=== PATIENT | male | born 1995 | race Caucasian/White ===

== ENCOUNTER 2018-03-02 11:04 | Emergency (ER) | payer SELFPAY ==
[2018-03-02 11:17] VITALS: BP 158/82
--- NOTE | 2018-03-02 13:31 | ER Document Report ---
HPI - HPI Patient complains to provider of: runny nose, cough Onset: Other - few days Onset/Duration: Gradual Pain Level: 1 Context: 22 yo male with congestion, cough, stufy nose, thinks he has the flu. No fever, chest pain or sob. Associated Symptoms: None Exacerbated by: Denies Relieved by: Denies - ROS ROS below otherwise negative: Yes Systems Reviewed and Negative: Yes All other systems reviewed and negative - RESPIRATORY Respiratory: REPORTS: Trouble Breathing, Coughing Past Medical History - General Information source: Patient - Social History Smoking Status: Never Smoker Lives with: Family Family History: Reviewed & Not Pertinent Patient has suicidal ideation: No Patient has homicidal ideation: No - Medical History Medical History: Negative Renal/ Medical History: Denies: Hx Peritoneal Dialysis Surgical Hx: Negative Vertical Provider Document - CONSTITUTIONAL Agree With Documented VS: Yes Exam Limitations: No Limitations General Appearance: No Apparent Distress - INFECTION CONTROL TRAVEL OUTSIDE OF THE [place] IN LAST 30 DAYS: No - HEENT HEENT: Pharyngeal Erythema - mild. negative: Conjuctival Injection, Tympanic Membrane Red - NECK Neck: Supple. negative: Lymphadenopathy-Left, Lymphadenopathy-Right - RESPIRATORY Respiratory: Breath Sounds Normal, No Respiratory Distress - CARDIOVASCULAR Cardiovascular: Regular Rate, Regular Rhythm - NEURO Level of Consciousness: Alert Course - Vital Signs Vital signs: Temp Pulse Resp BP Pulse Ox 98.0 F 58 L 14 158/82 H 99 03/02/18 11:16 03/02/18 11:16 03/02/18 11:16 03/02/18 11:16 03/02/18 11:16 Discharge - Discharge Clinical Impression: Upper respiratory infection Qualifiers: URI type: unspecified viral URI Qualified Code(s): J06.9 - Acute upper respiratory infection, unspecified Condition: Good Disposition: HOME, SELF-CARE Instructions: Acetaminophen, Ibuprofen (General) ([facility]), Upper Respiratory Illness ([facility]) Additional Instructions: Plenty of rest Plenty of fluids Saline nasal spray to help get the mucus out Return to the emergency room for any chest pain shortness of breath trouble breathing Tylenol up to 4000 mg a day for pain Motrin 600 mg up to 4 times a day for inflammation/pain Prescriptions: Ibuprofen [Motrin 600 mg Tablet] 600 mg PO Q6HP PRN #30 tablet PRN Reason: Forms: Return to Work
== END 2018-03-02 13:42 | disposition home or self-care (01) ==
LOC: ER 11:04
DX: J06.9 Acute upper respiratory infection, unspecified (principal); R09.89 Other specified symptoms and signs involving the circulatory and respiratory systems; R05 Cough
CPT/HCPCS: 99283